=== PATIENT | female | born 2000 | race Caucasian/White ===

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

== ENCOUNTER 2019-02-27 20:36 | Emergency (ER) | payer OTHER ==
[2019-02-27 20:46] VITALS: BP 128/83; PULSE 86; TEMP 99.5; BMI 27.6
--- NOTE | 2019-02-27 20:47 | PDOC ---
Rapid Medical Evaluation Chief Complaint: Oral Ulcers Time Seen by Provider: 02/27/19 20:45 Medical Evaluation: Allergies Allergy/AdvReac Type Severity Reaction Status Date / Time No Known Allergies Allergy Verified 12/16/18 15:47 02/27/19 20:45 Pt c/o:oral ulcers to mouth x 4 days, recurrent sores over the past year, saw specialist and states only resolution is with prednisone and magic mouthwash Pt on brief exam: noted mul aptheous sores to lips and gingiva, extends to tongue pt ordered for: none Pt to proceed to the ED Discharge Disposition - Diagnosis Oral lesion - Referrals - Patient Instructions - Post Discharge Activity
--- NOTE | 2019-02-27 21:22 | PDOC ---
History of Present Illness - General Chief Complaint: Oral Ulcers Stated Complaint: MOUTH SORES Time Seen by Provider: 02/27/19 20:45 History Source: Patient Exam Limitations: No Limitations - History of Present Illness Initial Comments: 02/27/19 21:18 18 year old female with no significant medical or surgical history presents with exacerbation of mouth sores x 4 days. Reports no etiology for these sores , she is being followed by a property and supply officer who gives her a months worth of prednisone for these sores but could not get in the office today. Complaining of discomfort with eating and speaking. Timing/Duration: other (4 dyas) Associated Symptoms: reports: denies symptoms Aspirin Received prior to arrival: Yes: no aspirin today Asa Contraindications(Core Measure): No: Allergy Beta Nichelle Contraindications(Core Measure): Yes: Not Prescribed Beta Nichelle Given by EMS(Core Measure): No Beta Nichelle Taken at Home(Core Measure): No Beta Nichelle Not Indicated at this Time(Core Measure): No Past History - Travel Traveled outside of the country in the last 30 days: No Close contact w/someone who was outside of country & ill: No - Past Medical History Allergies/Adverse Reactions: Allergies Allergy/AdvReac Type Severity Reaction Status Date / Time No Known Allergies Allergy Verified 02/27/19 20:46 Home Medications: Ambulatory Orders Lidocaine 2% Viscous Oral [Xylocaine 2% Viscous Oral -] 20 ml PO TID 7 Days # 200 ml 02/27/19 Prednisone [Deltasone] 20 mg PO DAILY 4 Days #8 tablet 02/27/19 Anemia: No Asthma: No Cancer: No Cardiac Disorders: No CVA: No COPD: No - Surgical History Abdominal Surgery: No Appendectomy: No Cardiac Surgery: No Cholecystectomy: No Gastric Stapling: No GI Surgery: No Lung Surgery: No - Immunization History Immunization Up to Date: Yes - Suicide/Smoking/Psychosocial Hx Smoking Status: No Smoking History: Never smoked Have you smoked in the past 12 months: No Number of Cigarettes Smoked Daily: 0 Information on smoking cessation initiated: No Hx Alcohol Use: No Drug/Substance Use Hx: No Substance Use Type: None Review of Systems - Review of Systems Able to Perform ROS?: Yes Is the patient limited Irish proficient: No Constitutional: No: Chills, Fever, Weakness HEENTM: Yes: Mouth Pain, Other (mouth ulcers) Respiratory: No: Cough, Orthopnea, Wheezing Cardiac (ROS): No: Chest Pain, Lightheadedness, Palpitations ABD/GI: No: Constipated, Diarrhea, Poor Appetite, Poor Fluid Intake : No: Dysuria, Discharge, Hematuria Musculoskeletal: No: Muscle Pain, Muscle Weakness Integumentary: No: Bruising, Erythema Neurological: No: Headache, Numbness, Weakness Psychiatric: No: Stressors, Sleep Pattern Change *Physical Exam - Vital Signs Last Vital Signs Temp Pulse Resp BP Pulse Ox 99.5 F 86 18 128/83 100 02/27/19 20:43 02/27/19 20:43 02/27/19 20:43 02/27/19 20:43 02/27/19 20:43 - Physical Exam General Appearance: Yes: Nourished, Appropriately Dressed HEENT: positive: EOMI, ISAC, Other (+ ulceration on left side of lower lips, hard palate, tongue and inner cheeks) Neck: positive: Supple. negative: Lymphadenopathy (R), Lymphadenopathy (L) Respiratory/Chest: positive: Lungs Clear Cardiovascular: positive: Regular Rhythm, Regular Rate Medical Decision Making - Medical Decision Making 02/27/19 21:22 18 year old female with no significant medical or surgical history presents with exacerbation of mouth sores x 4 days. mouth ulcers rx: viscous lidocaine prednisone urine preg 02/27/19 22:05 negative urine preg rx: prednisone viscous lidocaine *DC/Admit/Observation/Transfer Diagnosis at time of Disposition: Oral lesion - Discharge Dispostion Disposition: HOME Condition at time of disposition: Good Decision to Admit order: No - Prescriptions Prescriptions: Lidocaine 2% Viscous Oral [Xylocaine 2% Viscous Oral -] 20 ml PO TID 7 Days # 200 ml Prednisone [Deltasone] 20 mg PO DAILY 4 Days #8 tablet - Referrals Referrals: Jeannie Drew MD [Primary Care Provider] - (call for follow up appointment ) - Patient Instructions Printed Discharge Instructions: DI for Mouth Lesions Additional Instructions: Please take medication as prescribed Call property and supply officer for follow up appointment Return to emergency room for fever or chills - Post Discharge Activity Forms/Work/School Notes: Back to Work
[2019-02-27] MEDS ORDERED: predniSONE 20 MG TABLET (UD) PO ONE (22:03)
[2019-02-27] MEDS ORDERED: predniSONE 20 MG TABLET (UD) ONE (22:05)
[2019-02-27] MEDS ORDERED: LIDOCAINE VISCOUS 2% ORAL/TOP 20 ML UNIT-DOSE CUP ONE (22:06)
[2019-02-27] MEDS ORDERED: LIDOCAINE VISCOUS 2% ORAL/TOP 20 ML UNIT-DOSE CUP MM ONE (22:10)
== END 2019-02-27 22:10 | disposition home or self-care (01) ==
LOC: JERFT 20:36
DX: K13.70 Unspecified lesions of oral mucosa (principal)
CPT/HCPCS: 84703; 99282-25

== ENCOUNTER 2019-05-08 11:36 | Emergency (ER) | payer OTHER ==
[2019-05-08 11:48] VITALS: BP 119/80; PULSE 71; TEMP 98; BMI 26.6
--- NOTE | 2019-05-08 12:01 | PDOC ---
History of Present Illness - General Chief Complaint: Oral Ulcers Stated Complaint: ORAL ULCER Time Seen by Provider: 05/08/19 11:59 History Source: Patient Exam Limitations: No Limitations - History of Present Illness Initial Comments: 05/08/19 12:09 Chief complaint: Oral ulcers and sores Patient is a 18-year-old female with recurring oral ulcers who is previously been worked up for HIV, autoimmune and herpes which have all been negative. This happens every few months. She has a executive receptionist and this gets better when she takes steroids. She is following up with a executive receptionist next week but she has an outbreak now. She has a picture of her prescription of how the executive receptionist gives her steroids which gives her 60 mg of prednisone x4 days then 40 mg x 4 days and 20 mg x 4 days. Patient has no fever or any other complaints. GENERAL/CONSTITUTIONAL: No fever, weakness. dizziness HEAD, EYES, EARS, NOSE AND THROAT: No change in vision. No ear pain or discharge. No sore throat. Oral ulcers CARDIOVASCULAR: No chest pain RESPIRATORY: No shortness of breath or cough GASTROINTESTINAL: No pain, nausea, vomiting, diarrhea or constipation GENITOURINARY: No dysuria MUSCULOSKELETAL: No neck or back pain SKIN: No rash NEUROLOGIC: No headache, vertigo, loss of consciousness, or loss of sensation. GENERAL: The patient is awake, alert, and fully oriented, in no acute distress. HEAD: Normal with no signs of trauma. EYES: Pupils equal, round and reactive to light, sclera anicteric, conjunctiva clear. ENT: pharynx: no erythema, no exudate, uvula midline, swelling to the gums, and oral ulcers, no secondary signs of infection NECK: supple CHEST: clear, nontender, rr ABD: soft, nontender BACK: no tenderness or signs of injury EXTREMITIES: Normal range of motion, no edema. NEUROLOGICAL: Normal speech, normal gait. SKIN: Warm, Dry Past History - Past Medical History Allergies/Adverse Reactions: Allergies Allergy/AdvReac Type Severity Reaction Status Date / Time No Known Allergies Allergy Verified 02/27/19 20:46 Home Medications: Ambulatory Orders Lidocaine 2% Viscous Oral [Xylocaine 2% Viscous Oral -] 20 ml PO TID 7 Days # 200 ml 02/27/19 Prednisone [Deltasone] 20 mg PO DAILY 4 Days #8 tablet 02/27/19 predniSONE [Deltasone -] 20 mg PO UTDICT #21 tablet 05/08/19 Anemia: No Asthma: No Cancer: No Cardiac Disorders: No CVA: No COPD: No - Surgical History Abdominal Surgery: No Appendectomy: No Cardiac Surgery: No Cholecystectomy: No Gastric Stapling: No GI Surgery: No Lung Surgery: No - Immunization History Immunization Up to Date: Yes - Psycho Social/Smoking Cessation Hx Smoking Status: No Smoking History: Never smoked Have you smoked in the past 12 months: No Number of Cigarettes Smoked Daily: 0 Information on smoking cessation initiated: No Hx Alcohol Use: No Drug/Substance Use Hx: No Substance Use Type: None *Physical Exam - Vital Signs Last Vital Signs Temp Pulse Resp BP Pulse Ox 98.0 F 71 18 119/80 100 05/08/19 11:46 05/08/19 11:46 05/08/19 11:46 05/08/19 11:46 05/08/19 11:46 Medical Decision Making - Medical Decision Making 05/08/19 12:11 18-year-old female with complaint of oral ulcers and sores and pain which has been previously recorded several times has been worked up for HIV, herpes and autoimmune. Patient has executive receptionist. She has been treated with steroids successfully in the past and she states this is similar presentation. Patient has no other complaints. We will give her steroids as prescribed by her executive receptionist, she already has follow-up with him. Discussed issues, findings, results, applicable medications and treatments and follow-up. All these were understood and all questions were answered Discharge - Discharge Information Problems reviewed: Yes Clinical Impression/Diagnosis: Recurrent oral ulcers Condition: Stable Disposition: HOME - Admission No - Additional Discharge Information Prescriptions: predniSONE [Deltasone -] 20 mg PO UTDICT #21 tablet Prescription Drug Monitoring Program (I-STOP) results: I-STOP not reviewed - Follow up/Referral Referrals: Jeannie Drew MD [Primary Care Provider] - - Patient Discharge Instructions Additional Instructions: Take the prednisone as directed, follow-up with your executive receptionist, return to the ER if unable to swallow or difficulty breathing - Post Discharge Activity
[2019-05-08] MEDS ORDERED: predniSONE 20 MG TABLET (UD) PO ONE (12:15)
[2019-05-08] MEDS ORDERED: predniSONE 20 MG TABLET (UD) ONE (12:21)
== END 2019-05-08 12:23 | disposition home or self-care (01) ==
LOC: JERFT 11:36
DX: K12.1 Other forms of stomatitis (principal); K12.0 Recurrent oral aphthae
CPT/HCPCS: 99281-25

== ENCOUNTER 2019-06-02 18:02 | Emergency (ER) | payer OTHER ==
[2019-06-02 18:05] VITALS: BP 118/75; PULSE 87; TEMP 98; BMI 25.1
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
== END 2019-06-02 20:00 | disposition left against medical advice (07) ==
LOC: JERFT 18:02
DX: Z04.1 Encounter for examination and observation following transport accident (principal); V89.2XXA Person injured in unspecified motor-vehicle accident, traffic, initial encounter; Y92.410 Unspecified street and highway as the place of occurrence of the external cause; Y93.89 Activity, other specified; Y99.8 Other external cause status
CPT/HCPCS: 99281-25

== ENCOUNTER 2019-06-03 16:18 | Emergency (ER) | payer OTHER ==
[2019-06-03 16:29] VITALS: BP 129/74; PULSE 74; TEMP 98.6; BMI 25.1
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
[2019-06-03] MEDS ORDERED: IBUPROFEN 400 MG TABLET (FP) PO ONE ×2 (17:01→17:13)
[2019-06-03] MEDS ORDERED: METHOCARBAMOL 500 MG TABLET PO ONE (17:01)
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
[2019-06-03] MEDS ORDERED: METHOCARBAMOL 500 MG TABLET ONE (17:13)
== END 2019-06-03 17:37 | disposition home or self-care (01) ==
LOC: JERFT 16:18
DX: M54.6 Pain in thoracic spine (principal); V43.52XA Car driver injured in collision with other type car in traffic accident, initial encounter; W22.11XA Striking against or struck by driver side automobile airbag, initial encounter; Y92.414 Local residential or business street as the place of occurrence of the external cause; Y93.89 Activity, other specified; Y99.8 Other external cause status
CPT/HCPCS: 99281-25

== ENCOUNTER 2019-06-10 10:54 | Emergency (ER) | payer OTHER ==
[2019-06-10 11:03] VITALS: BP 138/72; PULSE 85; TEMP 99; BMI 26.6
--- NOTE | 2019-06-10 11:26 | PDOC ---
History of Present Illness - General Chief Complaint: Oral Ulcers Stated Complaint: ORAL ULCERS Time Seen by Provider: 06/10/19 11:10 - History of Present Illness Initial Comments: 06/10/19 11:25 18-year-old female without comorbidities presents for evaluation of oral ulcers x3 days without systemic symptoms Past History - Past Medical History Allergies/Adverse Reactions: Allergies Allergy/AdvReac Type Severity Reaction Status Date / Time No Known Allergies Allergy Verified 06/03/19 16:29 Home Medications: Ambulatory Orders Methocarbamol [Robaxin -] 500 mg PO BID #14 tablet 06/03/19 Naproxen 500 mg PO BID PRN #20 tablet 06/03/19 Acyclovir [Zovirax -] 200 mg PO 5XD #50 capsule 06/10/19 Anemia: No Asthma: No Cancer: No Cardiac Disorders: No CVA: No COPD: No Other medical history: recurrent russell ulcers - Surgical History Abdominal Surgery: No Appendectomy: No Cardiac Surgery: No Cholecystectomy: No Gastric Stapling: No GI Surgery: No Lung Surgery: No - Immunization History Immunization Up to Date: Yes - Psycho Social/Smoking Cessation Hx Smoking Status: No Smoking History: Never smoked Have you smoked in the past 12 months: No Number of Cigarettes Smoked Daily: 0 Hx Alcohol Use: No Drug/Substance Use Hx: No Substance Use Type: None Review of Systems - Review of Systems HEENTM: Yes: See HPI *Physical Exam - Vital Signs Last Vital Signs Temp Pulse Resp BP Pulse Ox 99 F 85 16 138/72 99 06/10/19 10:57 06/10/19 10:57 06/10/19 10:57 06/10/19 10:57 06/10/19 10:57 - Physical Exam 06/10/19 11:25 Patient has multiple oral lesions some vesicular in nature some erosive on the soft palate and gums. Ears canal and tympanic membrane are normal Medical Decision Making - Medical Decision Making 06/10/19 11:25 Patient states she was tested for HIV which was negative she will follow-up with her primary care physician acyclovir given Discharge - Discharge Information Problems reviewed: Yes Clinical Impression/Diagnosis: Oral lesion, Recurrent oral ulcers Condition: Stable Disposition: HOME - Admission No - Additional Discharge Information Prescriptions: Acyclovir [Zovirax -] 200 mg PO 5XD #50 capsule - Follow up/Referral Referrals: Jeannie Drew MD [Primary Care Provider] - - Patient Discharge Instructions Additional Instructions: Please take the medication as directed. Return to the emergency room for worsening symptoms. Without fail please follow-up with your primary care physician in 1 to 2 days for further evaluation and treatment options. Tylenol and Motrin as directed for pain. - Post Discharge Activity
[2019-06-10] MEDS ORDERED: DEXAMETHASONE LIQUID 0.5 MG/5 ML PO ONE (11:36)
[2019-06-10] MEDS ORDERED: DEXAMETHASONE SOD PHOSPHATE 10 MG/1 ML VIAL ONE (11:37)
== END 2019-06-10 11:41 | disposition home or self-care (01) ==
LOC: JERFT 10:54
DX: K13.79 Other lesions of oral mucosa (principal)
CPT/HCPCS: 99281-25

== ENCOUNTER 2020-03-09 08:21 | Inpatient (IN) | payer OTHER ==
[~2020-03-09 08:21] MED LIST: DINOPROSTONE 10 MG VAGINAL SUPPOSITORY VG ONE
[2020-03-09 09:29] VITALS: BMI 34.2
[2020-03-09 09:50] LABS: BASO % 0.2 % (0-2.0); EOS % 1.2 % (0-4.5); HEMATOCRIT 36.5 % (32.4-45.2); HEMOGLOBIN 11.6 GM/dL (10.7-15.3); MCH 26.2 pg (25.7-33.7); MCHC 31.7 g/dl (32.0-36.0); MEAN CELL VOLUME 82.5 fl (80-96); MONO % 4.6 % (3.8-10.2); PLATELET COUNT 226 K/MM3 (134-434); RBC 4.43 M/mm3 (3.60-5.2); WHITE BLOOD COUNT 12.4 K/mm3 (4.0-10.0)
[2020-03-09 09:56] LABS: INR 0.89 (0.83-1.09); PROTHROMBIN TIME (PATIENT) 10.5 SEC (9.7-13.0)
[2020-03-09 09:59] LABS: ACTIVATED PTT 27.7 SECONDS (25.2-36.5)
--- NOTE | 2020-03-09 10:08 | HP ---
Past Medical History - Admission Chief Complaint: Postdates History of Present Illness: 19 yo G 1 ED 03/02 EGA 40 + week admitted for induction History Source: Patient Limitations to Obtaining History: No Limitations - Past Medical History ...: 1 ...Para: 0 ...Term: 0 ...: 0 ...Spon : 0 ...Induced : 0 ...Living Children: 0 ...Multiple Gestation: 0 ...LMP: 05/24/19 ... Weeks Gestation by Dates: 41 ...EDC by Dates: 03/02/20 - Past Surgical History Past Surgical History: No: None, AAA Repair, AICD, Amputation, Appendectomy, Arthrosocopy, AV Fistula/Graft, Bariatric Surgery, Breast Biopsy, Bypass, CABG, Carotid Endarterectomy, Cataract Removal, Cholecystectomy, Colectomy, Colonoscop y, Colostomy, Craniotomy, , Cystectomy, Hernia Repair, Hysterectomy, Ileal Conduit, Ileosotomy, Joint Replacement, Kidney Transplant, Laminectomy, Liver Transplant, Mastectomy, Nephrectomy, Oopherectomy, Orchiectomy, Permanent Pacemaker, Prostatectomy, Splenectomy, Stent, Thoracotomy, TURP, Tonsillectomy, Tubal Ligation, Upper Endoscopy, Valve Replacement, Vasectomy, Vein Stripping/Ligation Hx Myomectomy: No Hx Transabdominal Cerclage: No - Smoking History Smoking history: Never smoked Have you smoked in the past 12 months: No Aproximately how many cigarettes per day: 0 - Alcohol/Substance Use Hx Alcohol Use: No History of Substance Use: reports: None - Social History ADL: Independent History of Recent Travel: No Home Medications - Allergies Allergies/Adverse Reactions: Allergies Allergy/AdvReac Type Severity Reaction Status Date / Time No Known Allergies Allergy Verified 02/27/20 23:16 - Home Medications Home Medications: Ambulatory Orders Iron,Carb/Vit C/Vit B12/Folic [Iron 100 Plus Tablet] 1 each PO DAILY 02/27/20 Vitamins (Sjr) - 1 tab PO DAILY 02/27/20 Review of Systems - Review of Systems Constitutional: reports: No Symptoms Eyes: reports: No Symptoms HENT: reports: No Symptoms Neck: reports: No Symptoms Cardiovascular: reports: No Symptoms Respiratory: reports: No Symptoms Gastrointestinal: reports: No Symptoms Genitourinary: reports: No Symptoms Breasts: reports: No Symptoms Reported Musculoskeletal: reports: No Symptoms Integumentary: reports: No Symptoms Neurological: reports: No Symptoms Endocrine: reports: No Symptoms Hematology/Lymphatic: reports: No Symptoms Psychiatric: reports: No Symptoms Physical Exam - Maternity Vital Signs: Vital Signs Temperature 98.5 F 03/09/20 09:17 Pulse Rate 93 H 03/09/20 09:17 Respiratory Rate 03/09/20 09:17 Blood Pressure 118/77 03/09/20 09:17 O2 Sat by Pulse Oximetry (%) Constitutional: Yes: Well Nourished, No Distress Cardiovascular: Yes: WNL Lungs: Clear to auscultation Breast(s): Yes: WNL - Abdominal Exam/OB Number of Fetuses: Single Presentation: Vertex Contractions: Yes Monitor Mode: External Category: I - Vaginal Exam/OB Dilatation (cm): 1-2 cm Effacement (%): 80 Amniotic Membrane Status: Intact Presentation: Vertex/Position Station: -1 - Physical Exam Musculoskeletal: Yes: WNL Extremities: Yes: WNL Edema: No - Labs Lab Results: CBC, BMP 03/09/20 09:05 Problem List - Problems (1) 40 weeks gestation of Problems reviewed: Yes Code(s): Z3A.40 - 40 WEEKS GESTATION OF (2) Post term Problems reviewed: Yes Code(s): O48.0 - POST-TERM Qualifiers: Post-term type: 40-42 weeks gestation Qualified Code(s): O48.0 - Post-term Assessment/Plan IUP @ 41 week post term Cervdil plan cervidil admit
[2020-03-09 10:11] LABS: BLOOD UREA NITROGEN 5.5 mg/dL (7-18); CALCIUM 8.9 mg/dL (8.5-10.1); CREATININE 0.5 mg/dL (0.55-1.3); POTASSIUM 4.1 mmol/L (3.5-5.1)
[2020-03-09] MEDS ORDERED: BUTORPHANOL TARTRATE 1 MG/ML VIAL IVPB SCH (10:15)
[2020-03-09] MEDS: ELECTROLYTE-148 SOLN 1,000 ML IV SCH (14:00)
--- NOTE | 2020-03-09 20:11 | PN ---
Ante-Partal Exam - Subjective Subjective: Pt Doing well pt with cramping on cervidil Vital Signs: Vital Signs Temperature 98.4 F 03/09/20 18:00 Pulse Rate 78 03/09/20 19:00 Respiratory Rate 20 03/09/20 19:00 Blood Pressure 109/68 03/09/20 19:00 O2 Sat by Pulse Oximetry (%) Bleeding: No Headache: No Visual changes: No Right upper quadrant pain: No - Contractions Contractions: Yes Regularity: Irregular Intensity: Mild/Mod Monitor Mode: External - Exam during Labor Variability: Moderate Category: I Monitor Decelerations: None Exam: Vaginal Dilatation (cm): 2 Effacement (%): 80 Amniotic Membrane Status: Intact Presentation: Vertex Station: -1 - Intrapartum Hemorrhage Risk Risk Score: 0 Risk Level: Low Risk - Assessment/Plan Assessment/Plan: Prodomal labor 40 week Cat 1 cervidil removed Plan Pitocin augment stadol
[2020-03-09] MEDS ORDERED: OXYTOCIN 30 UNITS in 0.9% NS 30 UNIT/500 ML INFUS.BAG IVPB SCH (20:15)
[2020-03-09] MEDS: BUTORPHANOL TARTRATE 1 MG/ML VIAL IVPB SCH (21:20)
[2020-03-09] MEDS ORDERED: BUTORPHANOL TARTRATE 2 MG/ML VIAL ONE (21:25)
[2020-03-09] MEDS ORDERED: OXYTOCIN 20 UNITS in 0.9% NS 20 UNIT/1,000 ML INFUS.BAG IV ONE (21:25)
[2020-03-09] MEDS ORDERED: OXYTOCIN 30 UNITS in 0.9% NS 30 UNIT/500 ML INFUS.BAG IVPB ONE (21:25)
[2020-03-09] MEDS ORDERED: LIDOCAINE HCL 1% PRESERVATIVE FREE - 30ML VIAL ONE (21:25)
[2020-03-10] MEDS ORDERED: PCA PUMP NR ONE (00:38)
[2020-03-10] MEDS ORDERED: FENTANYL/BUPIVACAINE/NS/PF - PCEA - 50 ML DISP.SYRIN EP ONE (00:39)
[2020-03-10] MEDS ORDERED: BUPIVACAINE HCL/PF 0.25% (2.5MG/ML) 10 ML VIAL ONE (00:49)
[2020-03-10] MEDS: FENTANYL/BUPIVACAINE/NS/PF - PCEA - 50 ML DISP.SYRIN EP SCH ×2 (01:00→01:15)
[2020-03-10] MEDS ORDERED: NALOXONE HCL 0.4 MG/ML VIAL IVPUSH PRN (01:13)
--- NOTE | 2020-03-10 04:21 | PN ---
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
[2020-03-10] MEDS ORDERED: ACETAMINOPHEN 325 MG TABLET (FP) PO PRN (04:26)
[2020-03-10] MEDS ORDERED: METHYLERGONOVINE MALEATE 0.2 MG/1 ML AMP IM PRN (04:26)
[2020-03-10] MEDS ORDERED: BENZOCAINE 28 GM HEMORRHOIDAL OINTMENT PR PRN (04:26)
[2020-03-10] MEDS ORDERED: BISACODYL 10 MG SUPP.RECT PR PRN (04:26)
[2020-03-10] MEDS ORDERED: IBUPROFEN 600 MG TABLET (FP) PO PRN (04:26)
[2020-03-10] MEDS ORDERED: OXYTOCIN 20 UNITS in 0.9% NS 20 UNIT/1,000 ML INFUS.BAG IV SCH (04:30)
[2020-03-10] MEDS ORDERED: OXYTOCIN 20 UNITS in 0.9% NS 20 UNIT/1,000 ML INFUS.BAG IV ONE (06:24)
[2020-03-10] MEDS: WITCH HAZEL 50% (TUCKS) 40 PAD/JAR PAD TP PRN (09:08)
[2020-03-10] MEDS: BENZOCAINE 20% 57 GM BOTTLE TP PRN (09:08)
[2020-03-10] MEDS: BUTORPHANOL TARTRATE 1 MG/ML VIAL IVPB SCH ×2 (12:45→12:46)
[2020-03-10] MEDS: ELECTROLYTE-148 SOLN 1,000 ML IV SCH (18:53)
[2020-03-11 09:04] LABS: BASO % 0.4 % (0-2.0); EOS % 0.8 % (0-4.5); HEMATOCRIT 32.5 % (32.4-45.2); HEMOGLOBIN 10.2 GM/dL (10.7-15.3); LYMPH % 17.7 % (8-40); MCH 25.7 pg (25.7-33.7); MCHC 31.2 g/dl (32.0-36.0); MEAN CELL VOLUME 82.2 fl (80-96); MEAN PLT VOLUME 9.3 fl (7.5-11.1); MONO % 2.7 % (3.8-10.2); NEUT % 78.4 % (42.8-82.8); PLATELET COUNT 241 K/MM3 (134-434); RBC 3.96 M/mm3 (3.60-5.2); RDW 15.1 % (11.6-15.6); WHITE BLOOD COUNT 15.6 K/mm3 (4.0-10.0)
[2020-03-11] MEDS: BENZOCAINE 20% 57 GM BOTTLE TP PRN (09:15)
[2020-03-11] MEDS: WITCH HAZEL 50% (TUCKS) 40 PAD/JAR PAD TP PRN (09:15)
[2020-03-11 10:27] VITALS: BP 116/71; PULSE 88; TEMP 98
== END 2020-03-11 14:50 | disposition home or self-care (01) | DRG 560 ==
LOC: JLDR 08:21 → J3W 15:31 → JLDR 18:19 → J3W 03-10 08:18
PROVIDERS: ADMIT Obstetrics & Gynecology; ATTEND Obstetrics & Gynecology
PROC: 3E0P7VZ Introduction of Hormone into Female Reproductive, Via Natural or Artificial Opening (ICD-10-PCS; principal; 2020-03-09)
PROC: 10E0XZZ Delivery of Products of Conception, External Approach (ICD-10-PCS; 2020-03-10)
DX: O48.0 Post-term pregnancy (principal); O70.0 First degree perineal laceration during delivery; O69.81X0 Labor and delivery complicated by cord around neck, without compression, not applicable or unspecified; Z3A.40 40 weeks gestation of pregnancy; Z37.0 Single live birth
CPT/HCPCS: 36415; 59409; 80048; 85025; 85610; 85730; 86780; 86850; 86900; 86901; U0003

== ENCOUNTER 2020-11-26 18:51 | Emergency (ER) | payer OTHER ==
[2020-11-26 19:02] VITALS: BP 120/73; PULSE 77; TEMP 98.1; BMI 29.5
[2020-11-26] MEDS ORDERED: METOCLOPRAMIDE HCL INJECTION 10 MG/2 ML VIAL IVPB STA (19:26)
[2020-11-26] MEDS ORDERED: METOCLOPRAMIDE HCL INJECTION 10 MG/2 ML VIAL ONE (19:41)
[2020-11-26] MEDS ORDERED: ACETAMINOPHEN 1000 MG/100 ML VIAL (NON FORMULARY) IVPB ONE (19:45)
[2020-11-26] MEDS ORDERED: SODIUM CHLORIDE 1,000 ML IV STA (19:45)
[2020-11-26 20:02] LABS: EOS % 2.1 % (0-4.5); HEMATOCRIT 34.6 % (32.4-45.2); HEMOGLOBIN 11.1 GM/dL (10.7-15.3); LYMPH % 11.6 % (8-40); MCHC 32.1 g/dl (32.0-36.0); MEAN CELL VOLUME 78.1 fl (80-96); MEAN PLT VOLUME 8.8 fl (7.5-11.1); MONO % 3.5 % (3.8-10.2); NEUT % 81.8 % (42.8-82.8); PLATELET COUNT 356 K/MM3 (134-434); RBC 4.43 M/mm3 (3.60-5.2); RDW 14.2 % (11.6-15.6); WHITE BLOOD COUNT 11.8 K/mm3 (4.0-10.0)
[2020-11-26] MEDS ORDERED: ACETAMINOPHEN INJECTION 100 ML IVPB ONE (20:04)
[2020-11-26 20:23] LABS: CALCIUM 8.7 mg/dL (8.5-10.1)
[2020-11-26 20:24] LABS: ALBUMIN 3.5 g/dl (3.4-5.0)
[2020-11-26 20:27] LABS: CREATININE 0.9 mg/dL (0.55-1.3)
[2020-11-26 20:28] LABS: BILIRUBIN,TOTAL 0.1 mg/dL (0.2-1); TOT PROT 7.1 g/dl (6.4-8.2)
[2020-11-26 20:58] LABS: URINE APPEARANCE CLEAR; URINE BILIRUBIN NEGATIVE (NEGATIVE); URINE COLOR YELLOW; URINE GLUCOSE (UA) NEGATIVE (NEGATIVE); URINE KETONE NEGATIVE (NEGATIVE); URINE LEUK ESTERASE NEGATIVE (NEGATIVE); URINE NITRITE NEGATIVE (NEGATIVE); URINE PROTEIN NEGATIVE (NEGATIVE)
[2020-11-26 21:01] LABS: HCG,QUALITATIVE URINE Negative
== END 2020-11-26 22:09 | disposition home or self-care (01) ==
LOC: JER 18:51
PROC: 3E0333Z Introduction of Anti-inflammatory into Peripheral Vein, Percutaneous Approach (ICD-10-PCS; principal; 2020-11-26)
PROC: 3E033GC Introduction of Other Therapeutic Substance into Peripheral Vein, Percutaneous Approach (ICD-10-PCS; 2020-11-26)
PROC: 3E0337Z Introduction of Electrolytic and Water Balance Substance into Peripheral Vein, Percutaneous Approach (ICD-10-PCS; 2020-11-26)
DX: R42 Dizziness and giddiness (principal); R51.9 Headache, unspecified
CPT/HCPCS: 36415; 80053; 81003; 84703; 85025; 87086; 99284-25; J0131

== ENCOUNTER 2020-12-11 13:37 | Emergency (ER) | payer OTHER ==
[2020-12-11 13:47] VITALS: BP 130/89; PULSE 86; TEMP 97.9; BMI 31.0
[2020-12-11] MEDS ORDERED: ACETAMINOPHEN 325 MG TABLET (FP) PO ONE (14:03)
[2020-12-11] MEDS ORDERED: predniSONE 20 MG TABLET (UD) PO ONE (14:03)
[2020-12-11] MEDS ORDERED: ACETAMINOPHEN 500 MG TABLET (FP) ONE (14:06)
[2020-12-11] MEDS ORDERED: predniSONE 20 MG TABLET (UD) ONE (14:06)
== END 2020-12-11 14:23 | disposition home or self-care (01) ==
LOC: JERFT 13:37 → JER 13:37 → JERFT 14:23
DX: K12.0 Recurrent oral aphthae (principal)
CPT/HCPCS: 99283-25

== ENCOUNTER 2020-12-31 06:24 | Emergency (ER) | payer OTHER ==
[2020-12-31 07:10] VITALS: BMI 30.2
[2020-12-31] MEDS ORDERED: KETOROLAC TROMETHAMINE 30 MG/1 ML VIAL IM ONE (07:34)
[2020-12-31] MEDS ORDERED: KETOROLAC TROMETHAMINE 30 MG/1 ML VIAL ONE (07:52)
[2020-12-31 08:37] VITALS: BP 123/82; PULSE 83; TEMP 98.3
== END 2020-12-31 08:36 | disposition home or self-care (01) ==
LOC: JER 06:24
PROC: 3E0233Z Introduction of Anti-inflammatory into Muscle, Percutaneous Approach (ICD-10-PCS; principal; 2020-12-31)
DX: J02.9 Acute pharyngitis, unspecified (principal)
CPT/HCPCS: 87880; 99284-25

== ENCOUNTER 2021-01-09 17:19 | Emergency (ER) | payer OTHER ==
[2021-01-09 17:30] VITALS: BP 114/75; PULSE 69; TEMP 98; BMI 29.5
[2021-01-09] MEDS ORDERED: predniSONE 20 MG TABLET (UD) PO ONE (17:59)
[2021-01-09] MEDS ORDERED: predniSONE 20 MG TABLET (UD) ONE (18:00)
== END 2021-01-09 18:10 | disposition home or self-care (01) ==
LOC: JERFT 17:19
DX: K12.0 Recurrent oral aphthae (principal)
CPT/HCPCS: 99283-25

== ENCOUNTER 2021-01-21 18:16 | Emergency (ER) | payer OTHER ==
[2021-01-21 18:54] VITALS: BP 125/57; PULSE 77; TEMP 98.3; BMI 29.5
[2021-01-21] MEDS ORDERED: predniSONE 10 MG TABLET (UD) PO ONE (19:16)
[2021-01-21] MEDS ORDERED: predniSONE 10 MG TABLET (UD) ONE (19:18)
== END 2021-01-21 20:00 | disposition home or self-care (01) ==
LOC: JERFT 18:16 → JER 18:16 → JERFT 20:00
DX: K12.30 Oral mucositis (ulcerative), unspecified (principal)
CPT/HCPCS: 99283-25

== ENCOUNTER 2021-03-13 13:43 | Emergency (ER) | payer OTHER ==
[2021-03-13 14:06] VITALS: BP 119/81; PULSE 99; TEMP 97; BMI 29.5
[2021-03-13] MEDS ORDERED: ERYTHROMYCIN 0.5% OPHTHALMIC OINTMENT 3.5 GM TUBE OU ONE (17:01)
[2021-03-13] MEDS ORDERED: predniSONE 20 MG TABLET (UD) PO ONE (17:01)
[2021-03-13] MEDS ORDERED: ERYTHROMYCIN 0.5% OPHTHALMIC OINTMENT 3.5 GM TUBE ONE (17:17)
[2021-03-13] MEDS ORDERED: predniSONE 20 MG TABLET (UD) ONE (17:17)
== END 2021-03-13 17:26 | disposition home or self-care (01) ==
LOC: JER 13:43 → JERFT 13:43
DX: H01.00A Unspecified blepharitis right eye, upper and lower eyelids (principal); K12.0 Recurrent oral aphthae
CPT/HCPCS: 99283-25

== ENCOUNTER 2021-05-10 18:03 | Emergency (ER) | payer OTHER ==
[2021-05-10 18:15] VITALS: BP 131/82; PULSE 75; TEMP 98.7; BMI 28.8
== END 2021-05-10 18:55 | disposition home or self-care (01) ==
LOC: JERFT 18:03
DX: K12.0 Recurrent oral aphthae (principal)
CPT/HCPCS: 99281-25

== ENCOUNTER 2021-07-22 19:33 | Emergency (ER) | payer OTHER ==
[2021-07-22 19:40] VITALS: BP 114/66; PULSE 74; TEMP 98; BMI 30.2
[2021-07-22] MEDS ORDERED: predniSONE 20 MG TABLET (UD) PO ONE (20:13)
[2021-07-22] MEDS ORDERED: IBUPROFEN 600 MG TABLET (FP) PO ONE ×2 (20:13→20:27)
[2021-07-22] MEDS ORDERED: LIDOCAINE VISCOUS 2% ORAL/TOP 15 ML UNIT-DOSE CUP MM ONE (20:13)
[2021-07-22] MEDS ORDERED: predniSONE 20 MG TABLET (UD) ONE (20:27)
[2021-07-22] MEDS ORDERED: LIDOCAINE VISCOUS 2% ORAL/TOP 15 ML UNIT-DOSE CUP ONE (20:27)
== END 2021-07-22 20:30 | disposition home or self-care (01) ==
LOC: JER 19:33
DX: K13.70 Unspecified lesions of oral mucosa (principal)
CPT/HCPCS: 99283-25

== ENCOUNTER 2021-08-25 18:12 | Emergency (ER) | payer OTHER ==
[2021-08-25 18:23] VITALS: BP 126/76; PULSE 76; TEMP 98.7; BMI 30.2
[2021-08-25] MEDS ORDERED: predniSONE 20 MG TABLET (UD) PO ONE (20:12)
[2021-08-25] MEDS ORDERED: predniSONE 20 MG TABLET (UD) ONE (20:20)
== END 2021-08-25 20:30 | disposition home or self-care (01) ==
LOC: JERFT 18:12
DX: K12.0 Recurrent oral aphthae (principal); K05.10 Chronic gingivitis, plaque induced
CPT/HCPCS: 99283-25

== ENCOUNTER 2021-11-21 18:14 | Emergency (ER) | payer OTHER ==
[2021-11-21 18:47] VITALS: BP 107/75; PULSE 81; TEMP 98.4; BMI 28.9
[2021-11-21] MEDS ORDERED: predniSONE 20 MG TABLET (UD) PO ONE (19:36)
[2021-11-21] MEDS ORDERED: predniSONE 20 MG TABLET (UD) ONE (19:42)
[2021-11-22] MEDS ORDERED: predniSONE 20 MG TABLET (UD) PO ONE (19:36)
== END 2021-11-21 20:04 | disposition home or self-care (01) ==
LOC: JERFT 18:14
DX: K12.30 Oral mucositis (ulcerative), unspecified (principal)
CPT/HCPCS: 99283-25

== ENCOUNTER 2021-12-27 15:41 | Emergency (ER) | payer OTHER ==
[2021-12-27 16:22] VITALS: BP 117/79; PULSE 92; TEMP 98.6; BMI 29.5
[2021-12-27] MEDS ORDERED: predniSONE 20 MG TABLET (UD) PO ONE (18:08)
[2021-12-27] MEDS ORDERED: predniSONE 20 MG TABLET (UD) ONE (18:55)
[2021-12-28] MEDS ORDERED: MAG HYDROX/ALH/SMC/DPHA/LIDO 240 ML MOUTHWASH MM SCH
== END 2021-12-27 19:15 | disposition home or self-care (01) ==
LOC: JERFT 15:41 → JER 15:41 → JERFT 19:15
DX: K13.70 Unspecified lesions of oral mucosa (principal)
CPT/HCPCS: 99283-25

== ENCOUNTER 2022-01-19 16:42 | Emergency (ER) | payer OTHER ==
[2022-01-19 17:14] VITALS: BP 122/83; PULSE 91; TEMP 98.1; BMI 30.2
[2022-01-19] MEDS ORDERED: LIDOCAINE VISCOUS 2% ORAL/TOP 15 ML UNIT-DOSE CUP MM ONE (17:39)
[2022-01-19] MEDS ORDERED: MAG HYDROX/AL HYDROX/SIMETH 30 ML UNIT-DOSE CUP PO ONE (17:39)
[2022-01-19] MEDS ORDERED: MAG HYDROX/AL HYDROX/SIMETH 30 ML UNIT-DOSE CUP ONE (17:44)
[2022-01-19] MEDS ORDERED: LIDOCAINE VISCOUS 2% ORAL/TOP 15 ML UNIT-DOSE CUP ONE (17:45)
[2022-01-19 18:52] LABS: SYPHILIS W/ RPR CONF NON-REACTIVE (NONREACTIVE)
[2022-01-19 21:59] LABS: HIV INTERPRETATION NEGATIVE (NEGATIVE)
== END 2022-01-19 19:04 | disposition home or self-care (01) ==
LOC: JERFT 16:42
DX: K13.70 Unspecified lesions of oral mucosa (principal)
CPT/HCPCS: 36415; 86780; 87389; 99283-25

== ENCOUNTER 2022-03-20 11:03 | Emergency (ER) | payer OTHER ==
[2022-03-20 11:20] VITALS: BP 114/80; PULSE 92; RESP 17; TEMP 97.9; BMI 30.2
[2022-03-20] MEDS ORDERED: KETOROLAC TROMETHAMINE 30 MG/1 ML VIAL IM ONE (13:25)
[2022-03-20] MEDS ORDERED: DEXAMETHASONE SOD PHOSPHATE 4 MG/1 ML VIAL IM ONE (13:25)
[2022-03-20] MEDS ORDERED: ONDANSETRON *ODT* 4 MG TABLET SL ONE (13:26)
[2022-03-20] MEDS ORDERED: ONDANSETRON *ODT* 4 MG TABLET ONE (13:43)
[2022-03-20] MEDS ORDERED: KETOROLAC TROMETHAMINE 30 MG/1 ML VIAL ONE (13:43)
[2022-03-20] MEDS ORDERED: DEXAMETHASONE SOD PHOSPHATE 4 MG/1 ML VIAL ONE (13:44)
[2022-03-20 14:23] LABS: THROAT:GRP A STREP NOT DETECTED (NOTDETECTED)
== END 2022-03-20 20:24 | disposition home or self-care (01) ==
LOC: JER 11:03
PROC: 3E023NZ Introduction of Analgesics, Hypnotics, Sedatives into Muscle, Percutaneous Approach (ICD-10-PCS; principal; 2022-03-20)
PROC: 3E0233Z Introduction of Anti-inflammatory into Muscle, Percutaneous Approach (ICD-10-PCS; 2022-03-20)
DX: J02.9 Acute pharyngitis, unspecified (principal)
CPT/HCPCS: 0241U-QW; 87651; 99283-25; Q0162